=== PATIENT | female | born 1985 | race Caucasian/White ===

== ENCOUNTER 2024-12-17 07:29 | Inpatient (IN) ==
[2024-12-17] MEDS ORDERED: OXYTOCIN 30 UNITS/NSS 30 UNITS/500 ML BAG IV PRN ×2 (08:54→16:40)
[2024-12-17] MEDS ORDERED: LIDOCAINE 1% LOCAL 20 ML VIAL INFIL PRN (08:54)
--- NOTE | 2024-12-17 09:35 | History & Physical Report ---
"Date of Service December 17, 2024 Assessment & Plan (1) Encounter for induction of labor: (2) Positive GBS test: Plan Mary is a 39yo at 41w1d admitted for IOL for postdates, GBS+. Pitocin AROM when indicated defers epidural as she did in prior delivery, no concerns at this time but may still opt in if she changes her mind continue monitoring FHR, currently category 1 Penicillin for GBS+ status Admission and Anticipated Discharge Date Admission Date: December 17, 2024 History of Present Illness Chief Complaint: IOL Primary Care Provider: NO PCP Mary is a 39yo at 41w1d admitted for IOL for postdates. No gregory bulb, Tuesday12/14/24 pt was 2cm dilated. Endorses she feels baby moving regularly. Denies feeling significant regular contractions but endorses having irregular ones for the past 2 weeks. Denies significant vaginal bleeding or discharge during . Denies significant abdominal/pelvic pain in the last few weeks. Endorses symptoms of mild lightheadedness and nausea when she looks around, not to the point of feeling like she will faint or throw up, respectively. Denies headache, blurry or double vision, SOB, chest pain, vomiting, constipation/diarrhea, LE pain. Last BM was this morning, regular. GBS+, Rh+, T. pallidum pending Allergies Allergy/AdvReac Type Severity Reaction Status Date / Time No Known Allergies Allergy Verified 12/14/24 14:51 Home Medications Medication Instructions Recorded Confirmed Type ondansetron HCl 4 mg tablet 4 mg PO Q6H 12/17/24 12/17/24 History vits no.124-ferrous fum 1 tab PO HS 12/17/24 12/17/24 History 27 mg iron-folic acid 800 mcg tablet ( Vitamin) Patient History Medical History Abnormal Pap smear of cervix Chicken pox Surgical History S/P wisdom tooth extraction Status post colposcopy Family History Grandmother (Maternal) Colorectal cancer Denies family history of Ovarian cancer Breast cancer Social History (Reviewed 12/17/24 @ 07:46 by ERICK Esteban Smoking Status: Never smoker Do You Dip or Chew Tobacco: No; Hx Alcohol Use: No Hx Substance Use: No Preferred Language: [place]ian Communication Ability: Effective 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 Beliefs That Will Affect Care: None marital status: marital status details: Truman Bella (41) [phone] Current Living Situation: Spouse and Family Current Living Situation Comment: Truman, Son Jarrell, 2 dogs, 1 cat current occupational status: unemployed current occupation: Homemaker How many Children do You have: 1 Other Information That Helps Us Care for You: Yes (Repair flap in Perineal area post delivery) Feels Safe at Home: Yes Safety Concerns: Feels Safe At This Time Physical Exam Physical Exam: Gen: A&Ox4, not appearing in acute distress HEENT: EOM intact, PERRL b/l, anicteric sclerae, moist mucous membranes CV: RRR, no m/r/g heard on auscultation, 2+ pulses throughout Resp: clear to auscultation b/l, no wheeze/rales/rhonchi GI/Abd: +BS, gravid with FHR pads in place Ext: warm, no significant swelling or erythema, calves nontender to palpation b/l, neg Karla's b/l Cervical: 2.5 | 50 | -2 FHR: baseline 130, moderate variability, accelerations present, decels absent Results & Data Vital Signs (Past 12 Hours) Vital Signs Temp Pulse Resp BP 12/17/24 08:05 116 H 136/80 12/17/24 07:42 36.8 C 16 12/17/24 07:39 134 H 135/83 Supervising Physician Co-Signing Physician Notes Resident Physician Supervision Note: I interviewed and examined the patient. Discussed with Dr. Mcnair and agree with findings and plan as documented in the note. Any exceptions or clarifications are listed here: 39 yo at 41 1/7 wga presents for late term IOL. PNI: fob w/ hx TOF > normal fecho, GBS+. VSS, SVE 2.5/50/-2, ceph, EFW 7-8. Fetus cat 1, irreg ctx. Will start pcn and pit, plans to go w/o epidural Documented By: Jasmina King MD Resident Activity Tracking Resident Involvement: Resident Care Provided Care Provided: OB Delivery"
[2024-12-17] MEDS: PENICILLIN GK 6 MU in DEXTROSE 5% 250 ML IV STA (09:36)
[2024-12-17 09:38] LABS: Hematocrit (blood only) 41.1 % (37.0-47.0); Hemoglobin 13.7 g/dl (12.0-16.0); Mean Corpuscular Hemoglobin 29.4 pg (25.0-34.0); Mean Corpuscular Hgb Conc 33.3 g/dL (32.0-36.0); Mean Corpuscular Volume 88.2 fL (80.0-100.0); Mean Platelet Volume 10.7 fL (9.4-12.4); Platelet Count 201 K/uL (130-400); RDW Coefficient of Variation 13.6 % (11.5-14.5); RDW Standard Deviation 43.5 fL (36.4-46.3); Red Blood Count 4.66 M/uL (4.20-5.40); White Blood Count 9.13 K/ul (4.8-10.8)
[2024-12-17] MEDS: LACTATED RINGER'S 1,000 ML IV PRN (09:38)
[2024-12-17] MEDS: OXYTOCIN 30 UNITS/NSS 30 UNITS/500 ML BAG IV PRN (09:50)
[2024-12-17] MEDS: PENICILLIN GK 3 MU in DEXTROSE 5% 100 ML IV PRN (13:29)
--- NOTE | 2024-12-17 14:53 | Labor Progress Brief Note ---
Date of Service December 17, 2024 Subjective getting more uncomfortable Assessment & Plan (1) Encounter for induction of labor: (2) Positive GBS test: Plan 39 yo at 41 1/7 wga presents for late term iol VSS Fetus cat 1 Labor - pit at 10, now s/p arom. Continue induction GBS+, s/p pcn x 2 epidural prn Admission and Anticipated Discharge Date Admission Date: December 17, 2024 Physical Exam Genitourinary: Manual OB Exam: + cervical dilation (3-4), + cervical effacement 70%, + station -2 and + amniotic fluid (arom clear) OB Exam Monitor Tracing: + external FHT monitor used, + external uterine monitor used (q2-4) and + category I (140/mod/+accel/-decel) Results & Data Vital Signs (Past 12 Hours) Vital Signs Temp Pulse Resp BP 12/17/24 14:10 105 H 134/84 12/17/24 12:13 102 H 138/87 12/17/24 12:01 15 12/17/24 12:01 98.2 F 15 12/17/24 11:00 109 H 114/76 12/17/24 09:57 112 H 143/86 H 12/17/24 09:56 115 H 132/92 12/17/24 08:05 116 H 136/80 12/17/24 07:42 98.2 F 16 12/17/24 07:39 134 H 135/83 Coding Level of Care Code None Diagnoses Encounter for induction of labor Z34.90 Positive GBS test B95.1
[2024-12-17] MEDS ORDERED: bisacodyL 10 MG SUPP PR PRN (16:40)
[2024-12-17] MEDS ORDERED: HYDROCORTISONE ACETATE 25 MG SUPP PR PRN (16:40)
--- NOTE | 2024-12-17 16:42 | Delivery Summary ---
Vaginal Delivery Summary Date of Service December 17, 2024 Vaginal Delivery Summary [facility] PREOPERATIVE DIAGNOSIS: 1. Single intrauterine at 41 1/7 wga 2. Late term IOL 3. GBS+ POSTOPERATIVE DIAGNOSIS: 1. Single intrauterine at 41 1/7 wga 2. Late term IOL 3. GBS+ 4. Delivered PROCEDURE: 1. Normal spontaneous vaginal delivery. SURGEON: Jasmina King MD ANESTHESIA: None QUANTITATIVE BLOOD LOSS: 150 mL FLUIDS: Continuous LR. URINE OUTPUT: None. COMPLICATIONS: None. CONDITION: Stable. INDICATIONS: 39 yo at 41 1/7 wga presented for late term IOL. Penicillin was started for GBS+ status. She was 2.5cm on arrival and started on pitocin. She underwent arom and quickly progressed to complete and desired to push FINDINGS: A viable male , weight pending with Apgars of 8 and 9 at 1 and 5 minutes respectively. SPECIMEN: Cord blood OPERATIVE REPORT: The patient progressed to 10 cm, 100% effaced and +2 station, pushed over intact perineum with anesthesia to deliver a viable male infant, weight and Apgars as above. Head of delivered in MINNIE position. Nuchal cord was reduced. Body and shoulders were delivered without difficulty. was delivered to maternal abdomen and nursing staff. Delayed cord clamping was performed for 60 seconds. Cord was clamped and cut. Cord blood was obtained. Placenta delivered spontaneously intact with 3-vessel cord. IV oxytocin and fundal massage were given for excellent hemostasis. Vagina, cervix, perineum, and placenta were inspected. No lacerations were noted. Hemostatic right labial abrasion did not need repaired. Sponge and needle counts correct x2. No sponges were left behind. Mother and stable in immediate period. [facility] [place]aginal Delivery Charge Vaginal Delivery Codes: 66731 global code for the antepartum, delivery, and post- Delivery Type Details: [facility]
[2024-12-17] MEDS: ACETAMINOPHEN 325 MG TAB PO PRN (19:15)
[2024-12-17] MEDS: BENZOCAINE 20% SPRY 85 APPLN/85 GM CAN EXT PRN (19:16)
[2024-12-17] MEDS ORDERED: Nursing to Pharmacy Communication SCH (21:15)
[2024-12-17] MEDS: DIPHTHER/TETAN/PERTUS Vaccine (Tdap, Adol/Adult) 0.5mL IM ONE (21:18)
[2024-12-17] MEDS: PRENATAL VITAMIN 1 TAB PO SCH (21:40)
[2024-12-17] MEDS: DOCUSATE SODIUM 100 MG CAP PO SCH (21:40)
--- NOTE | 2024-12-18 06:44 | Obstetrical Progress Note ---
Date of Service December 18, 2024 Assessment & Plan (1) state: Plan: 39yo s/p day 1 Feels well today, VSS continue care encourage ambulation and as tolerated Planning to go home tomorrow 12/19/[address] King in 6wks Admission and Anticipated Discharge Date Admission Date: December 17, 2024 Supervising Physician Co-Signing Physician Notes Resident Physician Supervision Note: I interviewed and examined the patient. Discussed with Dr. Mcnair and agree with findings and plan as documented in the note. Any exceptions or clarifications are listed here: PP1 s/p , doing well. VSS, exam benign. Prefers dc tomorrow Documented By: Jasmina King MD Subjective 39yo s/p day 1: Ambulation: ambulating normally Voiding: urinating, no BM Passing Gas: Yes Diet Tolerance: regular Lochia: Small Feeding Type: Doing well this morning- denies any symptoms of lightheadedness, dizziness, palpitations Physical Exam Physical Exam: Constitutional: WD/WN, vitals as above Psychiatric: A&Ox3, euthymic but tired appearing GI/Abd: +BS, uterus firm, fundus 1fw+ of umbilicus and R of midline Ext: no significant LE edema, calves nontender to palpation, wiggles toes Results & Data Vital Signs (Past 12 Hours) Vital Signs Temp Pulse Resp BP Pulse Ox O2 Del Method 12/18/24 04:00 36.6 C 97 H 16 108/78 96 Room Air 12/17/24 23:55 36.2 C L 91 H 18 130/88 96 Room Air 12/17/24 19:30 36.5 C 90 20 151/80 H 97 Room Air Resident Activity Tracking Resident Involvement: Resident Care Provided Care Provided: OB Delivery
[2024-12-18] MEDS ORDERED: PRENATAL VITAMIN 1 TAB PO SCH (08:00)
[2024-12-18] MEDS: IBUPROFEN 600 MG TAB PO PRN (08:07)
[2024-12-18 14:33] VITALS: RESP 20
[2024-12-18 17:12] VITALS: BP 127/83; PULSE 87; TEMP 97.9; O2SAT 97
[2024-12-18] MEDS ORDERED: bisacodyL 5 MG TABEC PO SCH (20:00)
== END 2024-12-18 19:15 | disposition home or self-care (01) | DRG 807 ==
LOC: 4S1 07:29 → 4E2 19:41